=== PATIENT | male | born 1945 | race Caucasian/White ===

== ENCOUNTER 2018-06-18 09:04 | Outpatient (CLI) | payer MEDICARE, BC, OTHER, SELFPAY | END 2018-06-18 09:24 | PROVIDERS: PCP Family Medicine; Visit Provider Nurse Practitioner Family | DX: I44.2 Atrioventricular block, complete (principal); I25.10 Atherosclerotic heart disease of native coronary artery without angina pectoris; I10 Essential (primary) hypertension; E78.5 Hyperlipidemia, unspecified; Z45.018 Encounter for adjustment and management of other part of cardiac pacemaker; J44.9 Chronic obstructive pulmonary disease, unspecified; Z87.891 Personal history of nicotine dependence | CPT/HCPCS: 93280; 99213 ==

== ENCOUNTER 2019-01-14 09:00 | Outpatient (REF) | payer MEDICARE, BC, SELFPAY ==
[2019-01-14 13:58] LABS: ALT 32 U/L (12-78); AST 26 U/L (15-37); Albumin 3.3 g/dL (3.4-5.0); Alkaline Phosphatase 105 U/L (46-116); BUN 17 mg/dL (7-18); Bilirubin, Total 0.7 mg/dL (0.2-1.0); Calcium 8.6 mg/dL (8.5-10.1); Chloride 101 mmol/L (98-107); Glucose 95 mg/dL (70-100); Magnesium 2.2 mg/dL (1.8-2.4); Potassium 4.1 mmol/L (3.5-5.1); Sodium 142 mmol/L (136-145); Total Protein 6.7 g/dL (6.4-8.2)
== END 2019-01-14 09:20 ==
LOC: NCHCN 09:00
PROVIDERS: PCP Family Medicine; Visit Provider Family Medicine
DX: E83.42 Hypomagnesemia (principal); E83.51 Hypocalcemia
CPT/HCPCS: 80053; 83735

== ENCOUNTER → 2019-01-21 12:40 | Outpatient (BNVA) | payer MEDICARE, BC, SELFPAY | PROVIDERS: PCP Family Medicine; Visit Provider Nurse Practitioner Family | DX: I44.2 Atrioventricular block, complete (principal); I25.10 Atherosclerotic heart disease of native coronary artery without angina pectoris; I10 Essential (primary) hypertension; E78.5 Hyperlipidemia, unspecified; Z45.018 Encounter for adjustment and management of other part of cardiac pacemaker; J44.9 Chronic obstructive pulmonary disease, unspecified | CPT/HCPCS: 93280; 99213 ==

== ENCOUNTER → 2019-02-24 02:16 | Outpatient (CLI) | payer MEDICARE, BC, SELFPAY ==
--- NOTE | 2019-02-24 | PFT_ITS ---
PULMONARY FUNCTION TEST REPORT Patient - He Rodriguez 45 DATE OF SERVICE February 24, 2019 REQUESTING PROVIDER Martín Degroot M.D. INTERPRETATION OF STUDY Spirometry shows severe obstructive airways disease with significant bronchodilator response. LUNG VOLUMES - Lung volumes show severe restriction. DIFFUSION CAPACITY- Severely reduced, which is normal when corrected to alveolar volume. AIRWAY RESISTANCE - Elevated. IMPRESSION Combination of severe obstructive airways disease with significant bronchodilator response and severe restrictive lung disease. Clinical correlation therefore recommended. Mya Rodriguez M.D. Chris T- 02/24/19
[2019-02-24] MEDS: Inhaler, Assist Device 1 EACH MC (08:40)
[2019-02-24] MEDS: Albuterol HFA 18 GM 200 PUFF INH IH (08:41)
== END ==
PROVIDERS: PCP Family Medicine; Visit Provider Family Medicine
DX: R06.02 Shortness of breath (principal); R05 Cough; Z87.891 Personal history of nicotine dependence
CPT/HCPCS: 94060; 94150; 94726; 94729

== ENCOUNTER 2019-03-19 11:50 | Outpatient (REF) | payer MEDICARE, BC, SELFPAY ==
[2019-03-19 14:05] LABS: Anion Gap 7.1 mmol/L (3-11); BUN 20 mg/dL (7-18); CO2 30.9 mmol/L (21.0-32.0); Calcium 8.9 mg/dL (8.5-10.1); Chloride 102 mmol/L (98-107); Glucose 100 mg/dL (70-100); NT-proBNP 300 pg/mL; Potassium 4.3 mmol/L (3.5-5.1); Sodium 140 mmol/L (136-145)
== END 2019-03-19 12:10 ==
LOC: NCHCN 11:50
PROVIDERS: PCP Family Medicine; Visit Provider Family Medicine
DX: R06.02 Shortness of breath (principal)
CPT/HCPCS: 80048; 83880

== ENCOUNTER 2020-04-19 07:31 | Outpatient (REF) | payer MEDICARE, BC, SELFPAY ==
[2020-04-19 21:59] LABS: Anion Gap 7.2 mmol/L (3-11); BUN 16 mg/dL (7-18); CO2 31.8 mmol/L (21.0-32.0); CREATININE 1.05 mg/dL (0.70-1.30); Calcium 8.4 mg/dL (8.5-10.1); Calculated LDL 42 mg/dL (<100); Chloride 103 mmol/L (98-107); Cholesterol 107 mg/dL (<200); Glucose 99 mg/dL (74-106); HDL Cholesterol 40 mg/dL (40-60); Magnesium 1.9 mg/dL (1.8-2.4); Potassium 3.9 mmol/L (3.5-5.1); Sodium 142 mmol/L (136-145); Triglyceride 127 mg/dL (<150)
== END 2020-04-19 07:51 ==
LOC: NCHCN 07:31
PROVIDERS: PCP Family Medicine; Visit Provider Family Medicine
DX: E83.42 Hypomagnesemia (principal); I10 Essential (primary) hypertension; I25.10 Atherosclerotic heart disease of native coronary artery without angina pectoris
CPT/HCPCS: 80048; 80061; 83735

== ENCOUNTER 2021-04-29 10:05 | Outpatient (REF) | payer MEDICARE, BC, SELFPAY ==
[2021-04-29 14:50] LABS: Anion Gap 10.4 mmol/L (3-11); BUN 16 mg/dL (7-18); CO2 28.6 mmol/L (21.0-32.0); Calcium 8.7 mg/dL (8.5-10.1); Chloride 103 mmol/L (98-107); Glucose 113 mg/dL (74-106); Magnesium 2.2 mg/dL (1.8-2.4); Potassium 4.3 mmol/L (3.5-5.1); Sodium 142 mmol/L (136-145)
== END 2021-04-29 10:06 | disposition home or self-care (01) ==
LOC: NCHCN 10:05
PROVIDERS: PCP Family Medicine; Visit Provider Family Medicine
DX: E83.42 Hypomagnesemia (principal); I10 Essential (primary) hypertension
CPT/HCPCS: 80048; 83735

== ENCOUNTER 2022-05-10 08:36 | Outpatient (REF) | payer MEDICARE, BC, SELFPAY ==
[2022-05-10 17:03] LABS: Anion Gap 12.5 mmol/L (3-11); BUN 21 mg/dL (7-18); CO2 26.5 mmol/L (21.0-32.0); CREATININE 1.1 mg/dL (0.70-1.30); Calcium 8.7 mg/dL (8.5-10.1); Chloride 103 mmol/L (98-107); Estimated GFR 69.14 (mL/min/1.73m2); Glucose 107 mg/dL (74-106); Potassium 4.3 mmol/L (3.5-5.1); Sodium 142 mmol/L (136-145)
[2022-05-10 18:11] LABS: Abs Immature Grans 0.07 10^3/uL (0.0-0.06); Absolute Basophil Count 0.05 10^3/uL (0.0-0.2); Absolute Eosinophil Count 0.14 10^3/uL (0.0-0.7); Absolute Lymphocyte Count 1.62 10^3/uL (1.2-3.4); Absolute Monocyte Count 0.83 10^3/uL (0.1-0.8); Absolute Neutrophil Count 8.01 10^3/uL (1.2-6.7); Basophils % 0.5; Eosinophils % 1.3; HCT 40.8 % (40.0-50.0); HGB 13.5 g/dL (13.5-17.5); Immature Grans % 0.7; Lymphocytes % 15.1; MCH 32.9 pg (27.0-33.0); MCHC 33.1 % (32.0-36.0); MCV 100 fL (80-95); MPV 10.5 fL (8.0-11.0); Monocytes % 7.7; Neutrophils % 74.7; Platelet Count 206 10^3/uL (130-400); RDW 13.1 % (11.8-14.1); RDW-SD 47.4 fL; WBC 10.72 10^3/uL (4.4-10.8)
== END 2022-05-10 08:37 | disposition home or self-care (01) ==
LOC: NCHCN 08:36
PROVIDERS: PCP Family Medicine; Visit Provider Family Medicine
DX: D75.89 Other specified diseases of blood and blood-forming organs (principal)
CPT/HCPCS: 80048; 85025

== ENCOUNTER 2023-01-16 17:24 | Outpatient (REF) | payer MEDICARE, BC, SELFPAY ==
[2023-01-16 18:24] LABS: Anion Gap 6.9 mmol/L (3-11); BUN 29 mg/dL (7-18); CO2 28.1 mmol/L (21.0-32.0); CREATININE 1.4 mg/dL (0.70-1.30); Calcium 8.6 mg/dL (8.5-10.1); Calculated LDL 42 mg/dL (<100); Chloride 103 mmol/L (98-107); Cholesterol 107 mg/dL (<200); Estimated GFR 51.77 (mL/min/1.73m2); Glucose 112 mg/dL (74-106); HDL Cholesterol 47 mg/dL (40-60); Potassium 4.8 mmol/L (3.5-5.1); Sodium 138 mmol/L (136-145); Triglyceride 94 mg/dL (<150)
== END 2023-01-16 17:25 | disposition home or self-care (01) ==
LOC: NCHCN 17:24
PROVIDERS: PCP Family Medicine; Visit Provider Family Medicine
DX: I10 Essential (primary) hypertension (principal); E78.5 Hyperlipidemia, unspecified
CPT/HCPCS: 80048; 80061

== ENCOUNTER 2023-05-07 16:38 | Outpatient (REF) | payer MEDICARE, BC, SELFPAY ==
[2023-05-07 16:39] LABS: Bilirubin Negative (Negative); Blood Negative (Negative); Clarity Clear (Clear); Glucose Negative (Negative); Ketones Negative (Negative); Leukocyte Esterase Small (Negative); Nitrite Negative (Negative); Urobilinogen 0.2 mg/dL (Up to 0.2); pH 5.5 (5-8)
[2023-05-07 16:50] LABS: Bacteria Moderate HPF (Negative); C & S Indicated? Yes; Casts Negative LPF (Negative); Crystals Negative HPF (Negative); Epithelial Cells Few HPF (Negative); Mucus Negative (Negative); RBC 0-2 HPF (0-2)
[2023-05-07 17:06] LABS: COMMENT (LAB VIEW ONLY) 86.23 mg/dL; Microalb ug/mg Crea 18.8 ug/mg Cr
== END 2023-05-07 16:39 | disposition home or self-care (01) ==
LOC: NCHCN 16:38
PROVIDERS: PCP Family Medicine; Visit Provider Family Medicine
DX: N28.9 Disorder of kidney and ureter, unspecified (principal); R82.998 Other abnormal findings in urine
CPT/HCPCS: 81003; 81015; 82043; 82570; 87086

== ENCOUNTER 2023-06-25 20:57 | Outpatient (REF) | payer MEDICARE, BC, SELFPAY ==
[2023-06-25 16:47] LABS: Anion Gap 9.7 mmol/L (3-11); BUN 18 mg/dL (7-18); CO2 27.3 mmol/L (21.0-32.0); Calcium 8.9 mg/dL (8.5-10.1); Chloride 103 mmol/L (98-107); Estimated GFR 77.04 (mL/min/1.73m2); Glucose 105 mg/dL (74-106); Potassium 4.5 mmol/L (3.5-5.1); Sodium 140 mmol/L (136-145)
== END 2023-06-25 20:58 | disposition home or self-care (01) ==
LOC: NCHCN 20:57
PROVIDERS: PCP Family Medicine; Visit Provider Family Medicine
DX: N28.9 Disorder of kidney and ureter, unspecified (principal)
CPT/HCPCS: 80048

== ENCOUNTER 2023-09-14 13:29 | Outpatient (CLI) | payer MEDICARE, BC, SELFPAY ==
--- NOTE | 2023-09-14 13:30 | RT.EKG_ITS ---
APPROVED REPORT Exam: Resting ECG Reason for Exam: follow up Patient Location: O HR:82 bpm ECG Measurements Heart Rate 82 AXIS VA 140 P 209 QRSd 146 QRS 198 QT 406 T -19 QTc 475 Conclusion A-V dual-paced complexes w/ some inhibition...other complexes also detected No further analysis attempted due to paced rhythm I have reviewed and interpreted ECG and agree with software generated interpretation.
== END 2023-09-14 13:30 | disposition home or self-care (01) ==
LOC: DI.CARD 13:31
PROVIDERS: PCP Family Medicine; Referring Provider Family Medicine; Visit Provider Internal Medicine Interventional Cardiology
DX: I25.10 Atherosclerotic heart disease of native coronary artery without angina pectoris (principal)
CPT/HCPCS: 93010

== ENCOUNTER → 2023-09-14 13:29 | Outpatient (BNVA) | payer MEDICARE, BC, SELFPAY | PROVIDERS: PCP Family Medicine; Referring Provider Family Medicine; Visit Provider Internal Medicine Interventional Cardiology | DX: Z95.0 Presence of cardiac pacemaker (principal); J44.9 Chronic obstructive pulmonary disease, unspecified; I10 Essential (primary) hypertension | CPT/HCPCS: 93005; 99203 ==

== ENCOUNTER → 2023-10-31 01:07 | Outpatient (CLI) | payer MEDICARE, BC, SELFPAY ==
--- NOTE | 2023-10-31 13:30 | DI.US_ITS ---
APPROVED REPORT EXAM: Comprehensive 2D, Doppler, and color-flow Echocardiogram Patient Location: Out-Patient Mysql Developer: Onelia Cary RDCS (AE) Other Information Study Quality: Fair. Technically limited study due to body habitus, inability to position patient exa m done supine . Conclusion Study quality is fair Normal left ventricular wall thickness chamber size and systolic function. EF is 60%. Mildly dilated right ventricle. Mildly reduced right ventricular systolic function. Septal motion i s consistent with paced beats. Device lead noted in the right heart Both atria are normal in size Sclerotic trileaflet aortic valve with trace regurgitation Mild mitral annular calcification. Trace to Mild mitral regurgitation Normal tricuspid valve with mild regurgitation. Estimated right ventricular systolic pressure is 30 mmHg Mildly dilated ascending aorta Wall motion Left Ventricle The left ventricle is normal size. The left ventricular systolic function is normal. The left ventric ular ejection fraction is within the normal range. There is normal left ventricular wall thickness. T here is normal LV segmental wall motion. There is no ventricular septal defect visualized. LVEF is 60 %. Right Ventricle Right ventricle is mildly dilated. Right ventricle is mildly hypokinetic. Pacemaker lead is present i n the right ventricle. Atria The left atrium size is normal. The right atrium size is normal. The interatrial septum is intact wit h no evidence for an atrial septal defect. Aortic Valve The Aortic valve is sclerotic. Aortic valve is trileaflet. There is no aortic valvular stenosis. Trac e aortic regurgitation. Mitral Valve Mild mitral annular calcification. No evidence of mitral valve stenosis. Trace to mild mitral regurgi tation. Tricuspid Valve The tricuspid valve is normal in structure. There is no tricuspid valve stenosis. Mild tricuspid reg urgitation. Pulmonic Valve The pulmonary valve is normal in structure. There is no pulmonic valvular stenosis. Trace pulmonic re gurgitation. Great Vessels The aortic root is normal in size. The ascending aorta is mildly dilated. The IVC was not visualized. Pericardium Technically limited subcostal imaging. 2D Dimensions IVSD d PLAX 0.81 cm M: 0.6-1.2 Ao Root d 3.22 cm M: 3.1 - 3.7 LVPW d PLAX 0.83 cm M: 0.6 - 1.2 Ao Asc Diam d 3.61 cm M: 2.6 - 3.4 LVID d PLAX 4.99 cm M: 4.2 - 5.8 LVDs 3.37 cm M: 2.5 - 4.0 LV EF Teichholz 60.5 % FS 32.45 % LV EDV (Teich) 117.5 mL LV ESV (Teich) 46.4 mL Auto EF LV EDV A4C 110.3 mL LV EDV A2C 125.5 mL LV EDV BP 118.8 mL LV ESV A4C 40.9 mL LV ESV A2C 50.8 mL LV ESV BP 45.2 mL LVEF(%) A4C 63.0 % LVEF(%) A2C 59.5 % LVEF(%) BP 62.0 % LV SV A4C 69.5 ml LV SV A2C 74.7 ml LV SV BP 73.7 ml LV CO A4C 4.2 L/min LV CO A2C 4.5 L/min LV CO BP 4.4 L/min HR A4C 60.79 BPM HR A2C 60.10 BPM LV EDV Index (BP) LV Strain Long Pk Overal Avg (s) 13.82 RV Strain Global Peak Long. Strain A4C 13.98 Global Peak Long. Strain A4C FW 14.68 LA Volume LA Length A4C 4.9 cm LA Length A2C 5.7 cm LA Area A4C s 14.71 cm2 LA Area A2C s 19.98 cm2 LA Vol A4C A-L 37.50 mL LA Vol A2C A-L 59.22 mL LA Vol Biplane A-L 51.0 mL LA Vol/BSA A4C A-L LA Vol/BSA A2C A-L LA Vol/BSA BP A-L 22.2 mL/m2 LA Vol A4C MOD 34.1 mL LA Vol A2C MOD 54.5 mL LA Vol BP MOD 46.5 mL RA Volume RA Area A4C 19.8 cm2 RA ESV A4C (A-L) 56.4mL RA Vol/BSA A4C A-L RA Length A4C 5.9 cm RA ESV A4C (MOD) 52.9mL LV Diastology MV E' medial 0.052 (>0.07 m/s) MV E Vmax 0.70 (0.4-1.3 m/s) MV E/E' MED 13.35 (<14) MV A Vmax 0.75 (0.4-1.3 m/s) MV E' lateral 0.128 (>0.1 m/s) E/A Ratio 0.9 MV E/E' LAT 5.45 (<14) MV E' Average 0.090 m/s MV E/E'(average) 7.74 Aortic Valve AoV Vmax 1.47 m/s LVOT Vmax 1.21 m/s AoV Peak Grad 8.7 mmHg LVOT Peak Grad 5.9 mmHg AoV Area (Vmax) 2.48 cm2 LVOT VTI 0.193 m AoV VTI 0.281 m LVOT Mean Grad 3.3 mmHg AoV Mean Ricki. 0.96 m/s LVOT SV 58.11 mL AoV Mean Grad 4.4 mmHg LVOT Diam s 1.95 cm AoV Area (VTI) 2.07 cm2 Velocity Ratio 0.82 Mitral Valve MV DT 229 (160-240 msec) MV Vmax TIPS 0.72 m/s MV Mean Grad 1.0 (<2mmHg) MV VTI 0.274 m Pulmonary Valve PV Vmax 1.14 (0.5-1.5 m/s) RVOT Vmax 0.78 m/s PV Peak Grad 5.2 mmHg RVOT Peak Gr. 2.4 mmHg PV Mean Ricki 0.75 m/s RVOT VTI 0.156 m PV Mean Grad 2.5 mmHg RVOT Mean Gr. 1.2 mmHg Tricuspid Valve TR Vmax 2.60 m/s TR Peak Grad 26.9 mmHg
== END ==
PROVIDERS: PCP Family Medicine; Visit Provider Internal Medicine Interventional Cardiology
DX: I50.9 Heart failure, unspecified (principal)
CPT/HCPCS: 93306

== ENCOUNTER → 2023-11-09 13:19 | Outpatient (BNVA) | payer MEDICARE, BC, SELFPAY | PROVIDERS: PCP Family Medicine; Referring Provider Family Medicine; Visit Provider Internal Medicine Cardiovascular Disease | DX: I25.10 Atherosclerotic heart disease of native coronary artery without angina pectoris (principal); I44.2 Atrioventricular block, complete; Z95.0 Presence of cardiac pacemaker | CPT/HCPCS: 99213 ==

== ENCOUNTER → 2024-05-19 12:19 | Outpatient (BNVA) | payer MEDICARE, BC, SELFPAY | PROVIDERS: PCP Family Medicine; Referring Provider Family Medicine; Visit Provider Internal Medicine Cardiovascular Disease | DX: I44.2 Atrioventricular block, complete (principal); I25.10 Atherosclerotic heart disease of native coronary artery without angina pectoris | CPT/HCPCS: 99213 ==

== ENCOUNTER → 2024-05-26 10:00 | Outpatient (BNVA) | payer MEDICARE, BC, SELFPAY | PROVIDERS: PCP Student in an Organized Health Care Education/Training Program; Referring Provider Student in an Organized Health Care Education/Training Program; Visit Provider Physical Therapy Assistant | DX: Z12.11 Encounter for screening for malignant neoplasm of colon (principal); Z86.010 Personal history of colon polyps ==

== ENCOUNTER 2024-06-18 06:59 | Day surgery (SDC) | payer MEDICARE, BC, SELFPAY ==
--- NOTE | 2024-06-17 16:31 | W.PM.DSUDISC ---
Date of service: 06/18/24 Time of Service: 09:40 Discharge Plan Disposition Patient Disposition: Home Condition: Good Discharge Details Reason For Visit: Screening colonoscopy Attending Provider: Albert Lutz Primary Care Provider: Dave Mcmillan Home Meds and New Rx's Prescriptions: Continued furosemide 40 MG tablet 40 mg PO BID nitroglycerin 0.4 MG tablet, sublingual 0.4 mg Sublingual PRN Patient Comments: 02/15/16 pt reports has never needed. bmr olopatadine [Pataday] 2.5 ML drops 1 drp Ophthalmic Q12H PRN atorvastatin 40 mg tablet 40 mg PO DAILY losartan 50 mg tablet 100 mg PO DAILY Stiolto Respimat 2.5-2.5 mcg/actuation mist 2 puff inhalation DAILY metoprolol succinate 25 mg tablet extended release 24 hr 25 mg PO DAILY Patient Comments: note from [facility] d/c states stop this on 09/15/23 RH Pt. states still taking this medication and he takes it at noon normally. 06/17/24 JW paroxetine HCl 20 MG tablet 20 mg PO DAILY aspirin 325 mg tablet 325 mg PO BID Discontinued bisacodyl [Dulcolax (bisacodyl)] 5 mg tablet,delayed release (DR/EC) 5 mg PO ONCE Qty: 4 0RF Rx Instructions: Take per colonoscopy instructions provided by ordering providers office polyethylene glycol 3350 17 gram/dose powder 17 g PO ONCE Qty: 238 0RF Rx Instructions: Take per colonoscopy instructions provided by ordering providers office Discharge Instructions Instructions: Colon polyps, Diverticulosis Additional Instructions: Martín, we are able to complete your colonoscopy today without any difficulty. I did find and removed 5 polyps today. Similar to your previous experiences, these will be sent off for testing, and once you we know the nature of these polyps, the office will be in touch regarding any recommendations for future colonoscopies. Incidentally, he also have some diverticulosis. Diverticula are weak spots in the muscular part of the colon wall. They typically accumulate as we get older. Basic approaches to management of diverticulosis includes staying well-hydrated, maintaining a well-balanced diet that is rich in fiber, and avoiding symptoms of constipation. I have attached some basic information here about colon polyps as well as diverticulosis. It will take a week or 2 to get the results of the polyp report, but if you have any questions in the meantime, please do not hesitate to ask. 1. If tolerated, consume a soft, low fiber diet for 1-2 days. 2. Do not drive, drink alcohol, operate machinery, make critical decisions, or do activities that require coordination or balance for 24 hours. 3. Because air was put into your colon during the procedure, expelling air from your rectum (passing gas or farting) is normal. 4. You may not have a bowel movement for 1-3 days because of the colonoscopy prep. This is normal. 5. Go directly to the emergency room if you notice any of the following: Develop chills (warm to touch), or if you have a thermometer and your temperature is above 101 Difficulty breathing or difficultly swallowing Persistent vomiting Severe abdominal pain, other than gas cramps Severe chest pain Black, tarry stools Any bleeding ? exceeding one tablespoon 6. Call your physician if the site where your intravenous was started becomes red, swollen, painful, and warm to touch. 7. Your physician has reviewed your pre-procedure medications. Please continue to take those medications as previously ordered. You will be given specific information/education regarding any changes to your medications before leaving. Activity:: Activity as Tolerated Diet:: As Tolerated Discharge Orders Discharge Orders: Discharge Order (Routine); Ordered 06/17/24 Ordered By: Albert Lutz DS: Diagnosis Discharge Diagnosis (1) Encounter for screening colonoscopy: Status: Acute Asessment and Plan: Follow-up on polypectomy results
--- NOTE | 2024-06-17 16:32 | COLE_ITS ---
Date of service: 06/18/24 Time of Service: 09:42 Colonoscopy Report Date of procedure: 06/18/24 Pre-op diagnosis general: Screening colonoscopy Post-op diagnosis procedure note: other (diverticulosis and colon polyps) Procedure: Colonoscopy with polypectomy Surgeon: Albert Lutz Anesthesia Type: General:No Airway Estimated blood loss (mL): 10 Pathology: other (Cecal polyps x 2, polyp at 90 cm, polyps at 85 cm x 2) Complications: None Disposition: same day Indications: He is a 79-year-old male who needs his next screening colonoscopy Prep: Miralax/Dulcolax Procedure Start Time: :09 Procedure End Time: :33 Retraction Time: 19 Findings: Diverticulosis, cecal polyps x 2, polyp at 90 cm, polyps at 85 cm x 2 Procedure Description: After the induction of anesthesia, and with the patient in left lateral decubitus position, I began by performing an external anorectal exam.? Perineum and skin were normal, as was the anal verge.? There was no evidence of external hemorrhoids.? Next, I performed a digital rectal exam.? I did not appreciate any abnormal findings.? Next, I advanced a colonoscope into the rectal vault.? I performed retroflexion.? There are internal hemorrhoids.? Using insufflation, I then advanced the colonoscope beyond the rectal folds and into the sigmoid colon before advancing towards the cecum.? The quality of the prep was adequate.? There is sigmoid diverticulosis that extends into the left colon. the scope was noted to be in the cecum by identification of the ileocecal valve and appendiceal orifice.? In the cecum were 2 polyps. Each of these was about 0.5 cm. These were both removed with a energize snare polypectomy with minimal bleeding. Specimens were retrieved for both polyps. I then began withdrawing the colonoscope using repeated irrigation as necessary for full evaluation of th e colonic mucosa. Around 90 cm from the anus was a 0.25 cm polyp. This was sessile appearing. This was removed in piecemeal with cold forceps. 2 more polyps were found around 85 cm from the anal verge. These were about 0.25 cm. These were both removed with cold forcep polypectomy. There was minimal bleeding at the sites. Once the scope was withdrawn to the level of the rectum, great care was taken to examine portions of the rectal folds.? Finally, the scope was withdrawn and the patient was brought to the same-day surgery recovery unit as the anesthetic wore off. ?The findings and instructions were shared with the patient prior to discharge. Drummond Bowel Prep Drummond Bowel Prep Right Colon: 2 Left Colon: 2 Transverse Colon: 2 Total Score: 6
[2024-06-18 08:15] VITALS: BP 104/46; PULSE 83; RESP 16; TEMP 36.6; O2SAT 97
--- NOTE | 2024-06-18 08:41 | W.ANESPRE ---
General Info Date of Service Date Performed: 06/18/24 Height: 5 ft 9 in Weight: 112.7 kg Body Mass Index (BMI): 36.6 Surgical Procedure: Operation Date: 06/18/24 08:50 Proposed Procedure Side Surgeon clement Lutz MD Meds Allergies and Home Medications Allergies Allergy/AdvReac Type Severity Reaction Status Date / Time clonazepam AdvReac Unknown Intolerance Verified 06/18/24 08:07 diltiazem AdvReac Unknown Intolerance Verified 06/18/24 08:07 lisinopril AdvReac intolerance Verified 06/18/24 08:07 Home Medication ?Medication ?Instructions ?Recorded furosemide 40 mg tablet 40 mg PO BID 06/23/14 nitroglycerin 0.4 mg sublingual 0.4 mg sublingual PRN 06/23/14 tablet olopatadine 0.2 % eye drops 1 drp ophthalmic (eye) Q12H PRN 06/23/14 (Patmason) paroxetine HCl 20 mg tablet 20 mg PO DAILY 02/06/16 atorvastatin 40 mg tablet 40 mg PO DAILY 01/21/19 losartan 50 mg tablet 100 mg PO DAILY 01/21/19 metoprolol succinate 25 mg 25 mg PO DAILY 05/19/21 tablet,extended release 24 hr tiotropium 2.5 mcg-olodaterol 2.5 2 puff inhalation DAILY 05/19/21 mcg/actuation mist for inhalation (Stiolto Respimat) aspirin 325 mg tablet 325 mg PO BID 06/18/24 Current Visit Medications: Current Medications Generic Name Dose Route Start Last Admin Trade Name Freq PRN Reason Stop Dose Admin Hyoscyamine Sulfate 0.125 mg 06/17/24 16:33 Hyoscyamine 0.125 Mg Sl/Oral/Chew SL 07/17/24 16:32 DIRECTED PRN Ringer's Solution 1,000 mls @ 80 mls/hr 06/18/24 06:00 IV 06/18/24 23:59 INFUSION KHLOE IV Miscellaneous Supplies 1 each 06/18/24 06:00 Iv Access IV 06/18/24 23:59 DIRECTED KHLOE Ondansetron HCl 4 mg 06/17/24 16:33 Ondansetron 4 Mg/2 Ml Vial IVP 07/17/24 16:32 Q4H PRN PRN Nausea / Vomiting Sodium Chloride 0 ml 06/18/24 06:00 Normal Saline Flush 10 Ml Syr IV 06/18/24 23:59 PRN PRN Sodium Chloride 0 ml 06/18/24 06:00 Normal Saline 10 Ml Vial IJ 06/18/24 23:59 DIRECTED PRN Sterile Water 0 ml 06/18/24 06:00 Water,Injection,Sterile 10 Ml Vial IJ 06/18/24 23:59 DIRECTED PRN PFSH Active Problems Active Problems: Problem Status Onset Code Encounter for screening colonoscopy Acute Z12.11 Hyperlipidemia Chronic E78.5 Hypertension Chronic I10 Coronary artery disease Acute I25.10 Complete heart block Acute I44.2 Tubular adenoma of colon Acute 08/27/15 D12.6 Medical History Medical History 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 Macrocytosis COPD (chronic obstructive pulmonary disease) History of rheumatoid arthritis Morbid obesity Depression Chronic anxiety Osteopenia Essential tremor DJD (degenerative joint disease) BPH (benign prostatic hyperplasia) Peripheral vascular disease Tinea cruris Venous stasis dermatitis Hypomagnesemia Actinic keratosis Restrictive lung disease Stage 3 severe COPD by GOLD classification Surgical History Surgical History History of permanent cardiac pacemaker placement Medtronic [id number] Interrogated 05/28/24 Tobacco Smoking/Tobacco Use Status: Former Tobacco Use Alcohol Alcohol Intake: never Substance Use Substance use: Never Substance use type: does not use Details: CBD oil for tremor held since Sunday Vital Signs and Lab Results Vital Signs Most Recent Vital Signs in EMR: Most Recent Vital Signs Temp Pulse Resp BP Pulse Ox 36.6 C 83 16 104/46 L 97 06/18/24 08:15 06/18/24 08:15 06/18/24 08:15 06/18/24 08:15 06/18/24 08:15 Lab Results Blood Type / Crossmatch: No Data to Display Complete Blood Count: No Data to Display Complete Metabolic Panel: No Data to Display Liver Function Panel: No Data to Display Coagulation Panel: No Data to Display Cardiac Panel: No Data to Display Arterial Blood Gas: No Data to Display Venous Blood Gas: No Data to Display Pancreas Panel: No Data to Display Thyroid Panel: No Data to Display Infectious Disease: No Data to Display Blood Cultures: No Data to Display Toxicology Panel: No Data to Display Anesthesia Assessment and Plan Anesthesia History Personal History: No History of Anesthesia Complications Family History: No Family History of Anesthesia Complications Exercise Tolerance Exercise Tolerance: Metabolic Equivalents>4 Pertinent Negatives Pertinent Negatives: No Symptoms of GERD Cardiac & Pulmonary Exam Cardiac Exam: Normal S1/S2 Heart Sounds Pulmonary Exam: Clear Bilateral Breath Sounds Implantable Cardiac Device Does patient have a Pacemaker or an ICD?: Yes Device Visual Coordinator:: [employer] [id number] Reason for Placement:: Complete Heart Block Date of Last Device Interrogation:: 05/28/24 Airway Exam Known Difficult Airway: No Mallampati Class: 2 Mouth Opening: Normal (> 3cm) Thyromental Distance: Greater than 3 cm Neck Range of Motion: Full ROM Neck Circumference: Thick Teeth Condition: Normal Dentition ASA Classification ASA Score: ASA 2 Emergency Case?: No NPO Status NPO Status: NPO Clears >2 hours, Solids >8 hours Anesthesia Plan Resuscitation Status: Full Code Anesthesia Technique: General Anesthesia Airway Planned: Natural Airway Monitors Used: Standard Monitors
[2024-06-18 08:42] VITALS: BMI 36.6
[2024-06-18] MEDS: Lactated Ringers 1,000 ML 80 ML IV (08:45)
--- NOTE | 2024-06-18 09:18 | BOWEL_PTH ---
PATIENT: He Rodriguez LOC: [facility] U#:[id number] AGE/SX: 79/M ROOM: RE06/18/[address]: Albert Lutz MD : 1945 BED: DIS: 06/18/2024 SPEC #: [id number] RECD: 06/18/24 12:50 STATUS: OH REQ #: [id number] PIPER: 06/18/24 09:[address]: Albert Lutz DEPT: Surgical Specimen RECD BY: Yanet Galvin ENTERED: 06/18/24 12:52 SP TYPE: Bowel OTHR DR: Dave Mcmillan Tissues: 1 - BIOPSY BOWEL 2 - BIOPSY BOWEL 3 - BIOPSY BOWEL Procedures: GROSS AND MICRO LEVEL 4 Comments: [id number]
[2024-06-18 09:45] VITALS: BP 112/63; PULSE 71; RESP 18; TEMP 36.6; O2SAT 98
--- NOTE | 2024-06-18 09:49 | W.ANESPOSTOP ---
Postoperative Evaluation Date, Time and Location Date Performed: 06/18/24 Time Performed: 09:49 Patient Location: Day Surgery Unit Vital Signs Most Recent Imported Vital Signs: Most Recent Vital Signs Temp Pulse Resp BP Pulse Ox 36.6 C 83 16 104/46 L 97 06/18/24 08:15 06/18/24 08:15 06/18/24 08:15 06/18/24 08:15 06/18/24 08:15 Pain Score Most Recent Pain Score: Most Recent Pain Score Pain Level 0 06/18/24 08:15 Assessment Mental Status: Awake (Alert & Oriented to Patient Baseline) Airway and Respiratory Function: Patent airway with normal (patient baseline) respiratory exam Cardiovascular Function: Hemodynamically Stable Hydration Status: Adequately Hydrated Nausea & Vomiting: No Nausea or Vomiting Pain: Pt. Denies Any Pain Peripheral Nerve Block: Patient did not receive a nerve block
[2024-06-18 10:20] VITALS: BP 106/100; PULSE 108; RESP 18; TEMP 36.6; O2SAT 100
== END 2024-06-18 10:40 | disposition home or self-care (01) ==
LOC: SUR 06:59
PROVIDERS: PCP Student in an Organized Health Care Education/Training Program; Visit Provider Surgery
PROC: 0DJD8ZZ Inspection of Lower Intestinal Tract, Via Natural or Artificial Opening Endoscopic (ICD-10-PCS; CPT 45378; principal; 2024-06-18 08:45)
DX: Z12.11 Encounter for screening for malignant neoplasm of colon (principal); D37.4 Neoplasm of uncertain behavior of colon; K57.30 Diverticulosis of large intestine without perforation or abscess without bleeding; K64.8 Other hemorrhoids; D12.3 Benign neoplasm of transverse colon
CPT/HCPCS: 45385; 45380; 88305; J2003; J2371; J2704

== ENCOUNTER 2025-02-09 18:10 | Outpatient (REF) | payer MEDICARE, BC, SELFPAY ==
[2025-02-09 21:40] LABS: HCT 36.3 % (40.0-50.0); HGB 12.3 g/dL (13.5-17.5); MCH 34.2 pg (27.0-33.0); MCHC 33.9 % (32.0-36.0); MCV 101 fL (80-95); MPV 10.6 fL (8.0-11.0); Platelet Count 182 10^3/uL (130-400); RDW 13.4 % (11.8-14.1); RDW-SD 48.8 fL; WBC 8.15 10^3/uL (4.4-10.8)
[2025-02-09 21:56] LABS: Anion Gap 8.3 mmol/L (3-11); BUN 23 mg/dL (7-18); CO2 30.7 mmol/L (21.0-32.0); CREATININE 0.8 mg/dL (0.70-1.30); Calcium 8.6 mg/dL (8.5-10.1); Chloride 102 mmol/L (98-107); Estimated GFR 90.02 (mL/min/1.73m2); Glucose 96 mg/dL (74-106); Potassium 4.3 mmol/L (3.5-5.1); Sodium 141 mmol/L (136-145)
== END 2025-02-09 18:11 | disposition home or self-care (01) ==
LOC: NCHCN 18:10
PROVIDERS: PCP Student in an Organized Health Care Education/Training Program; Visit Provider Student in an Organized Health Care Education/Training Program
DX: Z01.818 Encounter for other preprocedural examination (principal)
CPT/HCPCS: 80048; 85027

== ENCOUNTER 2025-02-11 08:26 | Outpatient (CLI) | payer MEDICARE, BC, SELFPAY ==
--- NOTE | 2025-02-11 08:15 | RT.EKG_ITS ---
APPROVED REPORT Exam: Resting ECG Reason for Exam: CHB, CAD Patient Location: O HR:63 bpm ECG Measurements Heart Rate 63 AXIS FL 138 P -12 QRSd 164 QRS -72 QT 456 T 14 QTc 467 Conclusion Ventricular-paced complexes...other complexes also detected No further analysis attempted due to paced rhythm
== END 2025-02-11 08:27 | disposition home or self-care (01) ==
LOC: DI.CARD 08:26
PROVIDERS: PCP Student in an Organized Health Care Education/Training Program; Visit Provider Registered Nurse
DX: I44.2 Atrioventricular block, complete (principal); I25.10 Atherosclerotic heart disease of native coronary artery without angina pectoris; Q24.6 Congenital heart block
CPT/HCPCS: 93010

== ENCOUNTER → 2025-02-11 10:31 | Outpatient (BNVA) | payer MEDICARE, BC, SELFPAY | PROVIDERS: PCP Student in an Organized Health Care Education/Training Program; Referring Provider Family Medicine; Visit Provider Registered Nurse | DX: Z45.018 Encounter for adjustment and management of other part of cardiac pacemaker (principal); I25.10 Atherosclerotic heart disease of native coronary artery without angina pectoris; I44.2 Atrioventricular block, complete; Z79.01 Long term (current) use of anticoagulants; Z79.02 Long term (current) use of antithrombotics/antiplatelets | CPT/HCPCS: 93280; 93005 ==

== ENCOUNTER 2025-02-20 12:34 | Day surgery (SDC) | payer MEDICARE, BC, SELFPAY ==
[2025-02-20 13:01] VITALS: BP 136/84; PULSE 96; RESP 20; TEMP 36.6; O2SAT 97
[2025-02-20] MEDS: Tropicam./Phenyleph. (1/2.5%) 5 ML BTL OD ×3 (13:04→13:19)
--- NOTE | 2025-02-20 13:18 | ANES.PREOP_ITS ---
General Info Date of Service Date Performed: 02/20/25 Height: 5 ft 10 in Weight: 106.4 kg Body Mass Index (BMI): 33.6 Surgical Procedure: Operation Date: 02/20/25 13:40 Proposed Procedure Side Surgeon p Cataract Extraction with IOL Implant Right Guillermo Serna MD Meds Allergies and Home Medications Allergies Allergy/AdvReac Type Severity Reaction Status Date / Time clonazepam AdvReac Unknown Intolerance Verified 02/20/25 12:55 diltiazem AdvReac Unknown Intolerance Verified 02/20/25 12:55 lisinopril AdvReac intolerance Verified 02/20/25 12:55 Home Medication ?Medication ?Instructions ?Recorded furosemide 40 mg tablet 40 mg PO BID 06/23/14 nitroglycerin 0.4 mg sublingual 0.4 mg sublingual PRN 06/23/14 tablet olopatadine 0.2 % eye drops 1 drp ophthalmic (eye) Q12 H PRN 06/23/14 (Samantha) paroxetine HCl 20 mg tablet 20 mg PO DAILY 02/06/16 atorvastatin 40 mg tablet 40 mg PO DAILY 01/21/19 losartan 50 mg tablet 100 mg PO DAILY 01/21/19 metoprolol succinate 25 mg 25 mg PO DAILY 05/19/21 tablet,extended release 24 hr tiotropium 2.5 mcg-olodaterol 2.5 2 puff inhalation DA LUZ 05/19/21 mcg/actuation mist for inhalation (Stiolto Respimat) aspirin 325 mg tablet 325 mg PO BID 06/18/24 Current Visit Medications: Current Medications Generic Name Dose Route Start Last Admin Trade Name Freq PRN Reason Stop Dose Admin Acetaminophen 1,000 mg 02/20/25 06:00 Acetaminophen 500 Mg Tab PO 03/22/25 05:59 Q4H PRN PRN Balanced Salt Solution 500 ml 02/20/25 06:00 Balanced Salt Soln.-Plus 500 Ml Bag OP 03/22/25 05:59 DIRECTED KHLOE Miscellaneous Medication 0 ml 02/20/25 06:00 Prednisolone 1%, Moxifloxacin 0.5%, Bromfenac 0.09% 5.6ml Btl OD 03/22/25 05:59 DIRECTED KHLOE Miscellaneous Medication 0 ml 02/20/25 06:00 02/20/25 13:12 Tropicam./Phenyleph. (1/2.5%) 5 Ml Btl OD 03/22/25 05:59 1 drp DIRECTED KHLOE Administration Tetracaine HCl 0 ml 02/20/25 06:00 Tetracaine 0.5% 4 Ml Btl OD 03/22/25 05:59 DIRECTED KHLOE PFSH Active Problems Active Problems: Problem Status Onset Code Posterior subcapsular age-related cataract, right eye Acute H25.041 Nuclear age-related cataract, right eye Acute H25.11 Encounter for screening colonoscopy Acute Z12.11 Hyperlipidemia Chronic E78.5 Hypertension Chronic I10 Coronary artery disease Acute I25.10 Complete heart block Acute I44.2 Tubular adenoma of colon Acute 08/27/15 D12.6 Medical History Medical History 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 is very nervous Surgical History Surgical History History of heart artery stent 2014 History of colonoscopy with polypectomy (~06/2024) History of permanent cardiac pacemaker placement Medtronic [id number] Interrogated 05/28/24 Tobacco Smoking/Tobacco Use Status: Former Tobacco Use Alcohol Alcohol Intake: current Alcohol intake frequency: a few times a month Substance Use Substance use: Never Substance use type: does not use Details: CBD oil for tremor has not for awhile Vital Signs and Lab Results Vital Signs Most Recent Vital Signs in EMR: Most Recent Vital Signs Temp Pulse Resp BP Pulse Ox 36.6 C 96 H 20 136/84 97 02/20/25 13:01 02/20/25 13:01 02/20/25 13:01 02/20/25 13:01 02/20/25 13:01 Lab Results Complete Blood Count: WBC, (4.4-10.8) 8.15 10^3/uL 02/09/25, 14:55 RBC, (4.36-5.78) 3.60 10^6/uL L 02/09/25, 14:55 Hgb, (13.5-17.5) 12.3 g/dL L 02/09/25, 14:55 Hct, (40.0-50.0) 36.3 % L 02/09/25, 14:55 Plt Count, (130-400) 182 10^3/uL 02/09/25, 14:55 Complete Metabolic Panel: Sodium, (136-145) 141 mmol/L 02/09/25, 14:55 Potassium, (3.5-5.1) 4.3 mmol/L 02/09/25, 14:55 Chloride, (98-107) 102 mmol/L 02/09/25, 14:55 Carbon Dioxide, (21.0-32.0) 30.7 mmol/L 02/09/25, 14 :55 BUN, (7-18) 23 mg/dL H 02/09/25, 14:55 Creatinine, (0.70-1.30) 0.8 mg/dL 02/09/25, 14:55 Est GFR (CKD-EPI 2020), (mL/min/1.73m2) 90.02 02/09/25, 14:55 Calcium, (8.5-10.1) 8.6 mg/dL 02/09/25, 14:55 Glucose, (74-106) 96 mg/dL 02/09/25, 14:55 Imaging and Studies Imaging and Studies Study information below may be from another EMR and interpreted by another provider. Please see original notes in EMR for more complete details. EKG Summary: 02/11/25 Conclusion Ventricular-paced complexes...other complexes also detected No further analysis attempted due to paced rhythm Echocardiogram Summary: 11/03/20 Conclusion Study quality is fair Normal left ventricular wall thickness chamber size and systolic function. EF is 60%. Mildly dilated right ventricle. Mildly reduced right ventricular systolic function. Septal motion is consistent with paced beats. Device lead noted in the right heart Both atria are normal in size Sclerotic trileaflet aortic valve with trace regurgitation Mild mitral annular calcification. Trace to Mild mitral regurgitation Normal tricuspid valve with mild regurgitation. Estimated right ventricular systolic pressure is 30 mmHg Mildly dilated ascending aorta Pulmonary Function Summary: 02/24/19 IMPRESSION Combination of severe obstructive airways disease with significant bronchodilator response and severe restrictive lung disease. Clinical correlation therefore recommended. Anesthesia Assessment and Plan Anesthesia History Personal History: No History of Anesthesia Complications Family History: No Family History of Anesthesia Complications Exercise Tolerance Exercise Tolerance: Metabolic Equivalents<4 (dyspnea and hip pain) Pertinent Negatives Pertinent Negatives: No Major Cardiovascular Symptoms or Complaints and No Major Pulmonary Symptoms or Complaints Cardiac & Pulmonary Exam Cardiac Exam: Normal S1/S2 Heart Sounds Pulmonary Exam: Clear Bilateral Breath Sounds Implantable Cardiac Device Does patient have a Pacemaker or an ICD?: Yes Device Emergency Management Specialist:: [employer] [id number] Reason for Placement:: CHB Date of Last Device Interrogation:: 02/11/25 Airway Exam Known Difficult Airway: No Mallampati Class: 2 Mouth Opening: Normal (> 3cm) Thyromental Distance: Less than 3 cm Neck Range of Motion: Limited ROM Neck Circumference: Thick Teeth Condition: Edentulous (left dentures at home) ASA Classification ASA Score: ASA 3 Emergency Case?: No NPO Status NPO Status: NPO Clears >2 hours, Solids >8 hours Anesthesia Plan Resuscitation Status: Full Code Anesthesia Technique: MAC Anesthesia Airway Planned: Natural Airway Monitors Used: Standard Monitors Preoperative Comments:: Very nervous, MKO given
[2025-02-20 13:20] VITALS: BMI 33.6
[2025-02-20] MEDS: Lidocaine 1% Pres-Free 5 ML VIAL (13:48)
[2025-02-20] MEDS: Duovisc Viscoelastic System EACH 1 EACH (13:48)
[2025-02-20] MEDS: Moxifloxacin-PF 1 MG/ML VIAL (13:49)
[2025-02-20] MEDS: Phenylephrine/Lidocaine (15/10) MG/ML 1 ML VIAL (13:49)
[2025-02-20] MEDS: Trypan Blue 0.06% 0.5 ML SYR (13:50)
[2025-02-20] MEDS: Povidone-Iodine Ophth 30 ML BTL (13:50)
[2025-02-20] MEDS: Balanced Salt Soln.-PLUS 500 ML BAG OP (13:51)
[2025-02-20] MEDS: Prednisolone 1%, Moxifloxacin 0.5%, Bromfenac 0.09% 5.6ML BTL OD (13:51)
[2025-02-20] MEDS: Tetracaine 0.5% 4 ML BTL OD (13:52)
[2025-02-20 14:15] VITALS: BP 99/42; PULSE 62; RESP 14; TEMP 37.3; O2SAT 97
--- NOTE | 2025-02-20 14:15 | PDOC.DSDIS_ITS ---
Date of service: 02/20/25 Discharge Plan Disposition Patient Disposition: Home Discharge Details Attending Provider: Guillermo Serna Primary Care Provider: Dave Mcmillan Home Meds and New Rx's Prescriptions: No Action furosemide 40 MG tablet 40 mg PO BID nitroglycerin 0.4 MG tablet, sublingual 0.4 mg Sublingual PRN Patient Comments: 02/15/16 pt reports has never needed. bmr olopatadine [Pataday] 2.5 ML drops 1 drp Ophthalmic Q12H PRN atorvastatin 40 mg tablet 40 mg PO DAILY losartan 50 mg tablet 100 mg PO DAILY Stiolto Respimat 2.5-2.5 mcg/actuation mist 2 puff inhalation DAILY metoprolol succinate 25 mg tablet extended release 24 hr 25 mg PO DAILY Patient Comments: note from [facility] d/c states stop this on 09/15/23 RH Pt. states still taking this medication and he takes it at noon normally. 06/17/24 JW paroxetine HCl 20 MG tablet 20 mg PO DAILY aspirin 325 mg tablet 325 mg PO BID Discharge Instructions Stand Alone Forms: DSU Post-Op CataractEvon (DSU) Discharge Orders Discharge Orders: Discharge Order (Routine); Ordered 02/20/25 Ordered By: Guillermo Serna DS: Diagnosis Discharge Diagnosis (1) Posterior subcapsular age-related cataract, right eye: Status: Resolved (2) Nuclear age-related cataract, right eye: Status: Resolved
--- NOTE | 2025-02-20 14:16 | W.PM.OP ---
Operative Note Operative Note PRE-OP DIAGNOSIS: Nuclear/posterior subcapsular cataract, right eye POST-OP DIAGNOSIS: same PROCEDURE: Cataract extraction using phacoemulsification with intraocular lens implant, right eye SURGEON: Guillermo Serna ANESTHESIA TYPE: Local By Surgeon and MAC Refer to Anesthesia Record ESTIMATED BLOOD LOSS: 0 PATHOLOGY: none sent COMPLICATIONS: None Patient was transported to: same day Patient's condition: stable Implants: Ignacio Clareon [id number] Indications: Progressive decreased vision due to cataract, right eye Procedure Description: CATARACT SURGERY OPERATIVE REPORT PREOPERATIVE DIAGNOSIS: Nuclear/posterior subcapsular cataract, right eye POSTOPERATIVE DIAGNOSIS: Same OPERATION: Cataract extraction using phacoemulsification with posterior chamber intraocular lens implant, right eye. IOL: IOL Tap And Die Maker Technician/Model: Ignacio Clareon [id number] IOL Power: + 22.5 diopters IOL Serial Number: [id number] Optic Diameter: 6.0mm Haptic/Overall Diameter: 13.0mm PHACO INFO: Ignacio Revolution Moneyurion Vision System with OZil and Active Fluidics Cumulative Dispersed Energy (CDE): 16.15 seconds SURGEON: Guillermo Serna MD, CARA ANESTHESIA: Monitored Anesthesia Care (MAC), with local sub-tenon's anesthetic infiltration COMPLICATIONS: None SPECIMENS: None INDICATIONS FOR PROCEDURE: The patient is a 79-year-old male with history of diminished visual acuity in his right eye secondary to the development of dense nuclear/posterior subcapsular cataract. He is significantly symptomatic that he desires cataract surgery in attempt to improve and maximize his vision. The option of cataract surgery was offered to the patient and he wished to proceed. See office notes for detailed information. PROCEDURE: The correct surgical eye was identified and marked as the right eye and the pupil was dilated in the preoperative area using mydriatics and cycloplegics. The dilated pupil size was 6.0 mm. Oral sedation was administered in the form of an Imprimis MKO Melt (midazolam 3mg/ketamine 25mg/ondansetron 2mg). The patient was brought to the operating room where cardiopulmonary monitoring was instituted and surgical time-out was performed, confirming the correct operative eye and IOL power. Topical anesthesia was administered and ophthalmic povidone-iodine 5% was instilled into the conjunctival fornices. The jaime-ocular area was prepped with Betadine 10% solution and draped in the usual sterile fashion for intraocular surgery, including an aperture drape. A Tegaderm transparent film dressing was cut in half and used to cover the lashes and lid margins. Care was taken to sequester the lashes and lid margins under the Tegaderm dressing. A lid speculum was placed between the lids of the operative eye and the Ignacio LuxOR Revalia operating microscope was maneuvered into position. Daria scissors were then used to make a conjunctival buttonhole approximately 6mm posterior to the limbus in the inferonasal quadrant. Blunt dissection was carried out to expose bare sclera, and a blunt-tipped sub-tenon?s anesthesia cannula was introduced and passed posteriorly along the globe where non-preserved plain lidocaine was injected into posterior sub-Tenon?s space. A sideport knife was used to make a paracentesis port. VisionBlue was injected into the anterior chamber and allowed to sit for 30 seconds. Intraocular phenylephrine/lidocaine was injected into the anterior chamber. The anterior chamber was then filled with viscoelastic. A keratome knife was used to construct a two--plane clear corneal tunnel extending 2.0mm into clear cornea. A flap was raised on the anterior capsule and capsulorhexis forceps were used to complete a continuous curvilinear capsulorhexis of 5.0 mm. Balanced salt solution was then used to perform cortical cleaving hydrodissection and nuclear hydrodelineation until the lens could be freely rotated within the capsular bag. The lens nucleus was then disassembled and removed within the capsular bag and iris plane using phacoemulsification. Residual cortical material was removed using the I/A handpiece. The posterior capsule was carefully polished to remove as much residual lens epithelial cells as safely possible. The capsular bag was then inflated and the anterior chamber deepened with cohesive viscoelastic. The lens implant described above was inserted into the capsular bag using the Ignacio Autonome Injector. A Kuglen hook was used to dial the IOL into position. Residual viscoelastic was then removed first from posterior to the IOL, then from the anterior chamber using the I/A handpiece. The lens implant was noted to center nicely within the capsular bag. The incisions were stromally hydrated, and the anterior chamber was reformed using BSS. Then 0.5cc of moxifloxacin 1.0mg/ml were injected into the capsular bag and anterior chamber. The incisions were checked with a Weck spear and found to be secure. Several drops of ophthalmic povidone-iodine 5% were then applied to the eye followed by two drops of combination steroid/NSAID/antibiotic solution. The drapes were removed and a clear plastic protective eye shield was placed over the eye. The patient was then returned to Same Day Surgery in stable condition. Date of Procedure: 02/20/25
[2025-02-20 14:40] VITALS: BP 105/58; PULSE 67; RESP 14; TEMP 37.2; O2SAT 98
--- NOTE | 2025-02-20 14:59 | W.ANESPOSTOP ---
Postoperative Evaluation Date, Time and Location Date Performed: 02/20/25 Time Performed: 14:33 Patient Location: Day Surgery Unit Vital Signs Most Recent Imported Vital Signs: Most Recent Vital Signs Temp Pulse Resp BP Pulse Ox 37.2 C 67 14 105/58 L 98 02/20/25 14:40 02/20/25 14:40 02/20/25 14:40 02/20/25 14:40 02/20/25 14:40 Pain Score Most Recent Pain Score: Most Recent Pain Score Pain Level 0 02/20/25 14:40 Assessment Mental Status: Awake (Alert & Oriented to Patient Baseline) Airway and Respiratory Function: Patent airway with normal (patient baseline) respiratory exam Cardiovascular Function: Hemodynamically Stable Hydration Status: Adequately Hydrated Nausea & Vomiting: No Nausea or Vomiting Pain: Pt. Denies Any Pain Peripheral Nerve Block: Patient did not receive a nerve block
== END 2025-02-20 14:50 | disposition home or self-care (01) ==
LOC: SUR 12:35
PROVIDERS: PCP Student in an Organized Health Care Education/Training Program; Visit Provider Ophthalmology
PROC: (CPT 66984; principal; 2025-02-20 13:30)
DX: H25.041 Posterior subcapsular polar age-related cataract, right eye (principal); H25.11 Age-related nuclear cataract, right eye
CPT/HCPCS: 66984; 00123; V2632; J2003

== ENCOUNTER 2025-03-06 05:48 | Day surgery (SDC) | payer MEDICARE, BC, SELFPAY ==
[2025-03-06 06:25] VITALS: BP 104/63; PULSE 63; RESP 18; TEMP 36.5; O2SAT 100
--- NOTE | 2025-03-06 06:29 | ANES.PREOP_ITS ---
General Info Date of Service Date Performed: 03/06/25 Height: 5 ft 10 in Weight: 106.4 kg Body Mass Index (BMI): 33.6 Surgical Procedure: Operation Date: 03/06/25 07:40 Proposed Procedure Side Surgeon p Cataract Extraction with IOL Implant Left Guillermo Serna MD Meds Allergies and Home Medications Allergies Allergy/AdvReac Type Severity Reaction Status Date / Time clonazepam AdvReac Unknown Intolerance Verified 03/06/25 06:14 diltiazem AdvReac Unknown Intolerance Verified 03/06/25 06:14 lisinopril AdvReac intolerance Verified 03/06/25 06:14 Home Medication ?Medication ?Instructions ?Recorded furosemide 40 mg tablet 40 mg PO BID 06/23/14 nitroglycerin 0.4 mg sublingual 0.4 mg sublingual PRN 06/23/14 tablet olopatadine 0.2 % eye drops 1 drp ophthalmic (eye) Q12 H PRN 06/23/14 (Samantha) paroxetine HCl 20 mg tablet 20 mg PO DAILY 02/06/16 atorvastatin 40 mg tablet 40 mg PO DAILY 01/21/19 losartan 50 mg tablet 100 mg PO DAILY 01/21/19 metoprolol succinate 25 mg 25 mg PO DAILY 05/19/21 tablet,extended release 24 hr tiotropium 2.5 mcg-olodaterol 2.5 2 puff inhalation DA LUZ 05/19/21 mcg/actuation mist for inhalation (Stiolto Respimat) aspirin 325 mg tablet 325 mg PO BID 06/18/24 multivitamin 1 tab PO DAILY 03/06/25 Current Visit Medications: Current Medications Generic Name Dose Route Start Last Admin Trade Name Freq PRN Reason Stop Dose Admin Acetaminophen 1,000 mg 03/06/25 06:00 Acetaminophen 500 Mg Tab PO 04/05/25 05:59 Q4H PRN PRN Balanced Salt Solution 500 ml 03/06/25 06:00 Balanced Salt Soln.-Plus 500 Ml Bag OP 04/05/25 05:59 DIRECTED KHLOE Miscellaneous Medication 0 ml 03/06/25 06:00 Prednisolone 1%, Moxifloxacin 0.5%, Bromfenac 0.09% 5.6ml Btl OS 04/05/25 05:59 DIRECTED KHLOE Miscellaneous Medication 0 ml 03/06/25 06:00 Tropicam./Phenyleph. (1/2.5%) 5 Ml Btl OS 04/05/25 05:59 DIRECTED [facility] Tetracaine HCl 0 ml 03/06/25 06:00 Tetracaine 0.5% 4 Ml Btl OS 04/05/25 05:59 DIRECTED [facility] PFSH Active Problems Active Problems: Problem Status Onset Code Posterior subcapsular age-related cataract of left eye Acute H25.042 Nuclear age-related cataract, left eye Acute H25.12 Posterior subcapsular age-related cataract, right eye Resolved H25.041 Nuclear age-related cataract, right eye Resolved H25.11 Encounter for screening colonoscopy Acute Z12.11 Hyperlipidemia Chronic E78.5 Hypertension Chronic I10 Coronary artery disease Acute I25.10 Complete heart block Acute I44.2 Tubular adenoma of colon Acute 08/27/15 D12.6 Medical History Medical History (Updated 03/05/25 @ 18:38 by Guillermo Serna MD) 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 is very nervous Surgical History Surgical History (Updated 02/20/25 @ 14:16 by Guillermo Serna MD) History of heart artery stent 2014 History of colonoscopy with polypectomy (~06/2024) History of permanent cardiac pacemaker placement Medtronic [id number] Interrogated 05/28/24 Tobacco Smoking/Tobacco Use Status: Former Tobacco Use Alcohol Alcohol Intake: current Alcohol intake frequency: a few times a month Substance Use Substance use: Never Substance use type: does not use Details: CBD oil for tremor has not for awhile Vital Signs and Lab Results Lab Results Complete Blood Count: WBC, (4.4-10.8) 8.15 10^3/uL 02/09/25, 14:55 RBC, (4.36-5.78) 3.60 10^6/uL L 02/09/25, 14:55 Hgb, (13.5-17.5) 12.3 g/dL L 02/09/25, 14:55 Hct, (40.0-50.0) 36.3 % L 02/09/25, 14:55 Plt Count, (130-400) 182 10^3/uL 02/09/25, 14:55 Complete Metabolic Panel: Sodium, (136-145) 141 mmol/L 02/09/25, 14:55 Potassium, (3.5-5.1) 4.3 mmol/L 02/09/25, 14:55 Chloride, (98-107) 102 mmol/L 02/09/25, 14:55 Carbon Dioxide, (21.0-32.0) 30.7 mmol/L 02/09/25, 14 :55 BUN, (7-18) 23 mg/dL H 02/09/25, 14:55 Creatinine, (0.70-1.30) 0.8 mg/dL 02/09/25, 14:55 Est GFR (CKD-EPI 2020), (mL/min/1.73m2) 90.02 02/09/25, 14:55 Calcium, (8.5-10.1) 8.6 mg/dL 02/09/25, 14:55 Glucose, (74-106) 96 mg/dL 02/09/25, 14:55 Imaging and Studies Imaging and Studies Study information below may be from another EMR and interpreted by another provider. Please see original notes in EMR for more complete details. EKG Summary: 02/11/25 Conclusion Ventricular-paced complexes...other complexes also detected No further analysis attempted due to paced rhythm Echocardiogram Summary: 11/03/20 Conclusion Study quality is fair Normal left ventricular wall thickness chamber size and systolic function. EF is 60%. Mildly dilated right ventricle. Mildly reduced right ventricular systolic function. Septal motion is consistent with paced beats. Device lead noted in the right heart Both atria are normal in size Sclerotic trileaflet aortic valve with trace regurgitation Mild mitral annular calcification. Trace to Mild mitral regurgitation Normal tricuspid valve with mild regurgitation. Estimated right ventricular systolic pressure is 30 mmHg Mildly dilated ascending aorta Pulmonary Function Summary: 02/24/19 IMPRESSION Combination of severe obstructive airways disease with significant bronch odilator response and severe restrictive lung disease. Clinical correlation therefore recommended. Anesthesia Assessment and Plan Anesthesia History Personal History: No History of Anesthesia Complications Family History: No Family History of Anesthesia Complications Exercise Tolerance Exercise Tolerance: Metabolic Equivalents<4 (dyspnea and hip pain) Cardiac & Pulmonary Exam Cardiac Exam: Normal S1/S2 Heart Sounds Pulmonary Exam: Clear Bilateral Breath Sounds Implantable Cardiac Device Does patient have a Pacemaker or an ICD?: Yes Device Supervisor Home Economics:: [employer] [id number] Reason for Placement:: CHB Date of Last Device Interrogation:: 02/11/25 Airway Exam Known Difficult Airway: No Mallampati Class: 2 Mouth Opening: Normal (> 3cm) Thyromental Distance: Less than 3 cm Neck Range of Motion: Limited ROM Neck Circumference: Thick Teeth Condition: Edentulous (left dentures at home) ASA Classification ASA Score: ASA 3 Emergency Case?: No NPO Status NPO Status: NPO Clears >2 hours, Solids >8 hours Anesthesia Plan Resuscitation Status: Full Code Anesthesia Technique: MAC Anesthesia Airway Planned: Natural Airway Monitors Used: Standard Monitors Preoperative Comments:: Repeat cataract. last was with MKO, had hypotension which was resolved with IM ephedrine. Discussed no MKO this time, he is on board.
[2025-03-06 06:30] VITALS: BMI 33.6
[2025-03-06] MEDS: Tropicam./Phenyleph. (1/2.5%) 5 ML BTL OS ×3 (06:36→06:47)
[2025-03-06] MEDS: Tetracaine 0.5% 4 ML BTL OS (07:31)
[2025-03-06] MEDS: Povidone-Iodine Ophth 30 ML BTL (07:32)
[2025-03-06] MEDS: Trypan Blue 0.06% 0.5 ML SYR (07:38)
[2025-03-06] MEDS: Lidocaine 1% Pres-Free 5 ML VIAL (07:40)
[2025-03-06] MEDS: Duovisc Viscoelastic System EACH 1 EACH (07:40)
[2025-03-06] MEDS: Phenylephrine/Lidocaine (15/10) MG/ML 1 ML VIAL (07:41)
[2025-03-06] MEDS: Balanced Salt Soln.-PLUS 500 ML BAG OP (07:42)
[2025-03-06] MEDS: Prednisolone 1%, Moxifloxacin 0.5%, Bromfenac 0.09% 5.6ML BTL OS (07:55)
[2025-03-06] MEDS: Moxifloxacin-PF 1 MG/ML VIAL (07:56)
[2025-03-06 08:02] VITALS: BP 120/69; PULSE 73; RESP 16; TEMP 36.5; O2SAT 98
--- NOTE | 2025-03-06 08:03 | PDOC.DSDIS_ITS ---
Date of service: 03/06/25 Discharge Plan Disposition Patient Disposition: Home Discharge Details Attending Provider: Guillermo Serna Primary Care Provider: Dave Mcmillan Home Meds and New Rx's Prescriptions: No Action furosemide 40 MG tablet 40 mg PO BID nitroglycerin 0.4 MG tablet, sublingual 0.4 mg Sublingual PRN Patient Comments: 02/15/16 pt reports has never needed. bmr olopatadine [Pataday] 2.5 ML drops 1 drp Ophthalmic Q12H PRN atorvastatin 40 mg tablet 40 mg PO DAILY losartan 50 mg tablet 100 mg PO DAILY Stiolto Respimat 2.5-2.5 mcg/actuation mist 2 puff inhalation DAILY metoprolol succinate 25 mg tablet extended release 24 hr 25 mg PO DAILY Patient Comments: note from [facility] [place] states stop this on 09/15/23 RH Pt. states still taking this medication and he takes it at noon normally. 06/17/24 JW paroxetine HCl 20 MG tablet 20 mg PO DAILY aspirin 325 mg tablet 325 mg PO BID multivitamin Tablet 1 tab PO DAILY Discharge Instructions Stand Alone Forms: DSU Post-Op Cataract, Evon Melo (DSU) Discharge Orders Discharge Orders: Discharge Order (Routine); Ordered 03/06/25 Ordered By: Guillermo Serna DS: Diagnosis Discharge Diagnosis (1) Posterior subcapsular age-related cataract of left eye: Status: Resolved (2) Nuclear age-related cataract, left eye: Status: Resolved
--- NOTE | 2025-03-06 08:04 | ROE_ITS ---
Operative Note Operative Note PRE-OP DIAGNOSIS: Nuclear/posterior subcapsular cataract, left eye POST-OP DIAGNOSIS: same PROCEDURE: Cataract extraction using phacoemulsification with intraocular lens implant, left eye SURGEON: Guillermo Serna ANESTHESIA TYPE: Local By Surgeon and MAC Refer to Anesthesia Record PATHOLOGY: none sent COMPLICATIONS: None Patient was transported to: same day Patient's condition: stable Implants: Ignacio Clareon [id number] Indications: Progressive decreased vision due to cataract, left eye Procedure Description: CATARACT SURGERY OPERATIVE REPORT PREOPERATIVE DIAGNOSIS: Nuclear/posterior subcapsular cataract, left eye POSTOPERATIVE DIAGNOSIS: Same OPERATION: Cataract extraction using phacoemulsification with posterior chamber intraocular lens implant, left eye. IOL: IOL Nitriles Lab Technician/Model: Ignacio Clareon [id number] IOL Power: + 23.5 diopters IOL Serial Number: [id number] Optic Diameter: 6.0mm Haptic/Overall Diameter: 13.0mm PHACO INFO: Ignacio Centurion Vision System with OZil and Active Fluidics Cumulative Dispersed Energy (CDE): 9.30 seconds SURGEON: Guillermo Serna MD, CARA ANESTHESIA: Monitored Anesthesia Care (MAC), with local sub-tenon's anesthetic infiltration COMPLICATIONS: None SPECIMENS: None INDICATIONS FOR PROCEDURE: The patient is a 79-year-old male with history of diminished visual acuity in both eyes secondary to the development of bilateral nuclear/posterior subcapsular cataract. He has already undergone cataract surgery in the right eye and is doing well postoperatively. He now presents for cataract surgery in the left eye. See office notes for detailed information. PROCEDURE: The correct surgical eye was identified and marked as the left eye and the pupil was dilated in the preoperative area using mydriatics and cycloplegics. The dilated pupil size was 6.0 mm. The patient elected to proceed without oral sedation. The patient was brought to the operating room where cardiopulmonary monitoring was instituted and surgical time-out was performed, confirming the correct operative eye and IOL power. Topical anesthesia was administered and ophthalmic povidone-iodine 5% was instilled into the conjunctival fornices. The jaime-ocular area was prepped with Betadine 10% solution and draped in the usual sterile fashion for intraocular surgery, including an aperture drape. A Tegaderm transparent film dressing was cut in half and used to cover the lashes and lid margins. Care was taken to sequester the lashes and lid margins under the Tegaderm dressing. A lid speculum was placed between the lids of the operative eye and the Ignacio LuxOR Revalia operating microscope was maneuvered into position. Daria scissors were then used to make a conjunctival buttonhole approximately 6mm posterior to the limbus in the inferonasal quadrant. Blunt dissection was carried out to expose bare sclera, and a blunt-tipped sub-tenon?s anesthesia cannula was introduced and passed posteriorly along the globe where non- preserved plain lidocaine was injected into posterior sub-Tenon?s space. A sideport knife was used to make a paracentesis port. VisionBlue was injected into the anterior chamber and allowed to sit for 30 seconds. Intraocular phenylephrine/lidocaine was injected into the anterior chamber. The anterior chamber was then filled with viscoelastic. A keratome knife was used construct a two-plane clear corneal tunnel extending 2.0mm into clear cornea. A flap was raised on the anterior capsule and capsulorhexis forceps were used to complete a continuous curvilinear capsulorhexis of 5.0 mm. Balanced salt solution was then used to perform cortical cleaving hydrodissection and nuclear hydrodelineation until the lens could be freely rotated within the capsular bag. The lens nucleus was then disassembled and removed within the capsular bag and iris plane using phacoemulsification. Residual cortical material was removed using the irrigation/aspiration handpiece. The posterior capsule was carefully polished to remove as much residual lens epithelial cells as safely possible. The capsular bag was then inflated and the anterior chamber deepened with viscoelastic. The lens implant described above was inserted into the capsular bag using the Ignacio Autonome Injector. A Kuglen hook was used to dial the IOL into position. Residual viscoelastic was then removed first from posterior to the IOL, then from the anterior chamber using the I/A handpiece. The lens implant was noted to center nicely within the capsular bag. The incisions were stromally hydrated, and the anterior chamber was reformed using BSS. Then 0.5cc of moxifloxacin 1.0mg/ml were injected into the capsular bag and anterior chamber. The incisions were checked with a Weck spear and found to be secure. Several drops of ophthalmic povidone-iodine 5% were then applied to the eye followed by two drops of combination steroid/NSAID/antibiotic solution. The drapes were removed and a clear plastic protective eye shield was placed over the eye. The patient was then returned to Same Day Surgery in stable condition. Date of Procedure: 03/06/25
--- NOTE | 2025-03-06 08:14 | W.ANESPOSTOP ---
Postoperative Evaluation Date, Time and Location Date Performed: 03/06/25 Time Performed: 08:14 Patient Location: Day Surgery Unit Vital Signs Most Recent Imported Vital Signs: Most Recent Vital Signs Temp Pulse Resp BP Pulse Ox 36.5 C 73 16 120/69 98 03/06/25 08:02 03/06/25 08:02 03/06/25 08:02 03/06/25 08:02 03/06/25 08:02 Pain Score Most Recent Pain Score: Most Recent Pain Score Pain Level 0 03/06/25 08:02 Assessment Mental Status: Awake (Alert & Oriented to Patient Baseline) Airway and Respiratory Function: Patent airway with normal (patient baseline) respiratory exam Cardiovascular Function: Hemodynamically Stable Hydration Status: Adequately Hydrated Nausea & Vomiting: No Nausea or Vomiting Pain: Pt. Denies Any Pain Peripheral Nerve Block: Patient did not receive a nerve block
== END 2025-03-06 08:31 | disposition home or self-care (01) ==
PROVIDERS: PCP Student in an Organized Health Care Education/Training Program; Visit Provider Ophthalmology
PROC: (CPT 66984; principal; 2025-03-06 07:30)
DX: H25.042 Posterior subcapsular polar age-related cataract, left eye (principal); H25.12 Age-related nuclear cataract, left eye; Z98.41 Cataract extraction status, right eye
CPT/HCPCS: 66984; 00123; V2632; J2003

== ENCOUNTER → 2025-05-18 12:50 | Outpatient (BNVA) | payer MEDICARE, BC, SELFPAY | PROVIDERS: PCP Student in an Organized Health Care Education/Training Program; Visit Provider Registered Nurse | DX: I44.2 Atrioventricular block, complete (principal); I25.10 Atherosclerotic heart disease of native coronary artery without angina pectoris; Z95.0 Presence of cardiac pacemaker; Z79.02 Long term (current) use of antithrombotics/antiplatelets | CPT/HCPCS: 99214 ==

== ENCOUNTER 2025-05-22 15:22 | Outpatient (REF) | payer MEDICARE, BC, SELFPAY ==
[2025-05-22 21:22] LABS: Abs Immature Grans 0.03 10^3/uL (0.0-0.06); HCT 38.2 % (40.0-50.0); HGB 12.7 g/dL (13.5-17.5); Immature Grans % 0.4 %; MCH 33.1 pg (27.0-33.0); MCHC 33.2 % (32.0-36.0); MCV 100 fL (80-95); MPV 11.0 fL (8.0-11.0); Platelet Count 185 10^3/uL (130-400); RBC 3.84 10^6/uL (4.36-5.78); RDW 13.4 % (11.8-14.1); RDW-SD 48.9 fL; WBC 8.01 10^3/uL (4.4-10.8)
[2025-05-22 21:30] LABS: Sodium 140 mmol/L (136-145)
[2025-05-22 21:43] LABS: Iron 64 ug/dL (65-175); Total Iron Binding Capacity 263 ug/dL (250-450); Transferrin Sat 24 % (20-55)
[2025-05-22 22:38] LABS: ALT 37 U/L (16-63); AST 26 U/L (15-37); Albumin 3.7 g/dL (3.4-5.0); Alkaline Phosphatase 117 U/L (46-116); Anion Gap 11.0 mmol/L (3-11); BUN 27 mg/dL (7-18); Bilirubin, Total 1.0 mg/dL (0.2-1.0); CO2 29.0 mmol/L (21.0-32.0); Calcium 8.5 mg/dL (8.5-10.1); Chloride 100 mmol/L (98-107); Estimated GFR 61.13 (mL/min/1.73m2); Ferritin 606 ng/mL (26-388); Folate > 20.0 ng/mL (8.6-20.0); Glucose 101 mg/dL (74-106); Magnesium 2.4 mg/dL (1.8-2.4); Potassium 4.9 mmol/L (3.5-5.1); Total Protein 6.8 g/dL (6.4-8.2); Vitamin B12 916 pg/mL (193-986)
== END 2025-05-22 15:23 | disposition home or self-care (01) ==
LOC: NCHCN 15:22
PROVIDERS: PCP Student in an Organized Health Care Education/Training Program; Visit Provider Student in an Organized Health Care Education/Training Program
DX: D64.9 Anemia, unspecified (principal)
CPT/HCPCS: 80053; 82607; 82728; 82746; 83540; 83550; 83735; 85025

== ENCOUNTER 2025-06-04 02:18 | Outpatient (CLI) | payer MEDICARE, BC, SELFPAY ==
[2025-06-08 13:31] LABS: Albumin 55.0 % (55.8-66.1); Albumin g/dL 3.8 g/dL (3.6-5.2); Alpha 1 g/dL 0.30 g/dL (0.15-0.40); Alpha 2 g/dL 0.90 g/dL (0.50-1.00); Beta g/dL 0.80 g/dL (0.60-1.20); Gamma g/dL 1.00 g/dL (0.60-1.60); Total Protein 6.9 g/dL (6.3-8.2)
== END 2025-06-04 02:19 | disposition home or self-care (01) ==
LOC: LBO 02:18
PROVIDERS: PCP Student in an Organized Health Care Education/Training Program; Visit Provider Student in an Organized Health Care Education/Training Program
DX: D64.9 Anemia, unspecified (principal)
CPT/HCPCS: 36415; 84165

== ENCOUNTER 2025-06-15 03:45 | Outpatient (CLI) | payer MEDICARE, BC, SELFPAY ==
[2025-06-15 11:21] LABS: ESR 13 mm/hr (0-20)
[2025-06-15 11:59] LABS: C-Reactive Protein < 0.50 mg/dL (<or=0.5)
== END 2025-06-15 03:46 | disposition home or self-care (01) ==
LOC: LBO 03:45
PROVIDERS: PCP Student in an Organized Health Care Education/Training Program; Visit Provider Student in an Organized Health Care Education/Training Program
DX: D53.9 Nutritional anemia, unspecified (principal)
CPT/HCPCS: 36415; 85652; 86140